=== PATIENT | male | born 1960 | race Caucasian/White ===

== ENCOUNTER 2020-06-04 09:23 | Outpatient (CLI) | payer MEDICARE, SELFPAY ==
--- NOTE | 2020-06-04 09:35 | MR_ITS ---
WS: [id number] MRI LUMBAR SPINE NONCONTRAST TECHNIQUE: Sagittal T1, T2 and STIR imaging. Axial T1 and T2 imaging. CLINICAL INFORMATION: M54.16 Radiculopathy, lumbar region COMPARISON: None. FINDINGS: Moderate lumbar curve convex left. No acute compression fractures. Degenerative endplate edema L3-4. No acute appearing compression fractures. No high-grade central canal stenosis. Low-lying conus at th e L3-4 level with dorsal fatty filum. Findings compatible with congenital cord tethering. Normal sign al in the distal cord and conus. No evidence of syrinx. L1-L2: Normal. L2-L3: Mild disc bulging with slight effacement of ventral thecal sac. Mild right and no significant left foraminal narrowing. Mild facet arthropathy. L3-L4: Mild disc bulging with slight effacement of ventral thecal sac. Small bilateral foraminal prot rusions with mild bilateral foraminal narrowing. Mild facet arthropathy. L4-L5: Mild disc bulging with slight effacement of ventral thecal sac. Mild left and no significant r ight foraminal narrowing. Moderate facet arthropathy. L5-S1: No significant disc bulging. Mild osteophytic ridging. Spinal canal and foramen are patent. Mi ld facet arthropathy. Visualized pelvic bony structures: Normal. Paravertebral soft tissues: Normal. MR/MR lumbar spine wo con* [id number] IMPRESSION: 1. Mild lumbar curve convex left. No acute compression fractures. 2. Degenerative endplate edema L3-4 disc space narrowing. 3. Small bilateral foraminal protrusions L3-4 with mild left greater than righ t foraminal narrowing. 4. Mild bilateral L4-5 foraminal narrowing. 5. Mild to moderate facet arthropathy L3-L5. 6. Low-lying conus at the L3-4 level with cord tethering and fatty filum is co ngenital. No syrinx or signal abnormality in the lower thoracic cord or conus. 7. Mild central canal stenosis in the mid cervical spine C4-C6.
--- NOTE | 2020-06-04 10:15 | XR_ITS ---
WS: [id number] HIPS BILATERAL TECHNIQUE: 5 views bilateral hips Including pelvis CLINICAL INFORMATION: Groin pain. COMPARISON: None. FINDINGS: Mild degenerative arthritis both hips. Hips are normal in appearance. Normal femoral necks. Normal pubic rami. No acute fractures. XR/XR hip BI 3-4V wo/w pel [id number] IMPRESSION: Mild degenerative arthritis both hips. No acute fractures.
== END 2020-06-04 09:24 | disposition home or self-care (01) ==
LOC: RADWPI 09:27
PROVIDERS: Family Provider Internal Medicine; PCP Internal Medicine; Visit Provider Internal Medicine
DX: R10.30 Lower abdominal pain, unspecified (principal); M16.0 Bilateral primary osteoarthritis of hip; R60.0 Localized edema; M51.26 Other intervertebral disc displacement, lumbar region; M48.02 Spinal stenosis, cervical region; M47.816 Spondylosis without myelopathy or radiculopathy, lumbar region
CPT/HCPCS: 72148; 73522

== ENCOUNTER → 2020-07-09 12:52 | Outpatient (BNVA) | payer MEDICARE, SELFPAY | PROVIDERS: Family Provider Internal Medicine; PCP Internal Medicine; Visit Provider Specialist | DX: G56.22 Lesion of ulnar nerve, left upper limb (principal) | CPT/HCPCS: 95910 ==

== ENCOUNTER 2020-08-22 14:26 | Outpatient (CLI) | payer MEDICARE, SELFPAY ==
--- NOTE | 2020-08-22 14:32 | MR_ITS ---
WS: [id number] MRI CERVICAL SPINE NONCONTRAST TECHNIQUE: Sagittal T1, T2 and STIR imaging. Axial T2, gradient, and fiesta imaging. CLINICAL INFORMATION: LEFT HAND NUMBNESS COMPARISON: None. FINDINGS: Straightening of the normal cervical lordosis. No high-grade central canal stenosis. Cord signal is n ormal. Some images degraded by patient motion. 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 C2-C3: Mild osteophytic ridging. Mild left and no significant right foraminal narrowing. Mild facet a rthropathy. Spinal canal is patent. C3-C4: Mild disc osteophyte complex with endplate ridging. Mild bilateral bony foraminal narrowing wo rse in the left. Moderate left facet arthropathy. C4-C5: Disc osteophyte complex with endplate ridging. Moderate right and no significant left foramina l narrowing. Mild/moderate facet arthropathy worse in the left. Spinal canal is patent. C5-C6: Disc osteophyte complex with slight effacement of the ventral thecal sac. Mild central canal s tenosis. Mild to moderate bilateral bony foraminal narrowing. C6-C7: Disc osteophyte complex with endplate ridging. Spinal canal is patent. Mild left greater than right bony foraminal narrowing. C7-T1: Mild osteophytic ridging. Slight canal is patent. Moderate left and no significant right shaneka inal narrowing. Visualized brain stem structures: Normal. Prevertebral soft tissues: Normal. MR/MR cervical spin wo con* [id number] IMPRESSION: 1. Straightening of the normal cervical lordosis. Cord signal is normal. Moder ate spondylitic changes. 2. Mild disc osteophyte complexes C3-C5 with slight effacement of ventral thec al sac. Mild central canal stenosis C5-C6. 3. Multilevel mild to moderate bony foraminal narrowing worse at left C3-4, ri ght C4-5, left C5-6, and left C7-T1. 4. 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
== END 2020-08-22 14:27 | disposition home or self-care (01) ==
LOC: RADWPI 14:31
PROVIDERS: PCP Internal Medicine; Visit Provider Orthopaedic Surgery
DX: G56.20 Lesion of ulnar nerve, unspecified upper limb (principal); R20.0 Anesthesia of skin; M25.78 Osteophyte, vertebrae
CPT/HCPCS: 72141

== ENCOUNTER 2020-08-23 12:16 | Outpatient (CLI) | payer MEDICARE, SELFPAY ==
--- NOTE | 2020-08-23 12:25 | CT_ITS ---
WS: [id number] CT CHEST WITH INTRAVENOUS CONTRAST HISTORY: ABNORMAL FINDING OF LUNG FIELD TECHNIQUE: Contiguous 5 mm axial imaging performed on the thorax. Coronal and sagittal reformats are submitted. All CT scans at [facility] use at least one of these dose optimization techniq ues: automated exposure control; mA and/or kV adjustment per patient size (includes targeted exams wh ere dose is matched to clinical indication); or iterative reconstruction. CONTRAST: Omnipaque 300; 95 mL IV. DLP: 900.01 mGy.cm COMPARISON: None available. Lungs and central airway: No pulmonary nodule or mass or pneumonia. Pleura: Normal. No pleural effusion. Heart and pericardium: Normal size heart with no pericardial effusion. Mediastinum and german: No significant adenopathy. Subcentimeter 8.7 mm lymph node at the LEFT hilum. Vessels: Mild tortuosity of the thoracic aorta due to the scoliosis of the thoracic spine. There is n o aneurysm. Pulmonary artery size is normal. There are a few scattered calcifications in the [place] c oronary arteries. Chest wall and lower neck: No soft tissue masses. Upper abdomen: Negative. Osseous structures: Marked RIGHT convex curvature the thoracic spine. Segmentation vertebral abnormal ities at T7-8. CT/CT chest w con* [id number] IMPRESSION: 1. No pulmonary mass or nodule. No pneumonia. 2. Mild atherosclerosis [place] coronary arteries. 3. No adenopathy.
[2020-08-23] MEDS: iohexol 300 mg/mL 100 mL Btl IV (13:12)
== END 2020-08-23 12:17 | disposition home or self-care (01) ==
LOC: RAD 12:19
PROVIDERS: PCP Internal Medicine; Visit Provider Internal Medicine
DX: R91.8 Other nonspecific abnormal finding of lung field (principal); I25.10 Atherosclerotic heart disease of native coronary artery without angina pectoris
CPT/HCPCS: 71260

== ENCOUNTER 2020-09-05 11:15 | Emergency (ER) | payer MEDICARE, SELFPAY ==
[2020-09-05 11:38] VITALS: BP 153/101; PULSE 91; RESP 16; TEMP 36.8; O2SAT 97; BMI 27.9
[2020-09-05 12:30] LABS: Basophils % 0.3 %; Eosinophils # 0.1 10^3/uL (0.0-0.8); Eosinophils % 1.3 %; Hematocrit 45.9 % (42.0-52.0); Hemoglobin 15.7 g/dL (11.7-16.6); Lymphocytes % 16.2 %; Mean Corpuscular HGB Conc 34.2 g/dL (30.0-36.0); Mean Corpuscular Hemoglobin 28.7 pg (28.0-34.0); Mean Corpuscular Volume 83.9 fL (80-94); Mean Platelet Volume 8.5 fL (7.4-10.4); Monocytes # 0.3 10^3/uL (0.2-0.9); Monocytes % 5.4 %; Neutrophils % 76.6 %; Nucleated Red Blood Cells % 0 %; Platelet Count 325 10^3/cmm (130-400); Red Blood Count 5.47 10^6/uL (4.1-5.3); Red Cell Distribution Width 12.2 % (12.1-15.1); White Blood Count 6.1 10^3/uL (4.0-10.0)
--- NOTE | 2020-09-05 12:45 | CT_ITS ---
WS: [id number] CT ABDOMEN AND PELVIS NONCONTRAST HISTORY: constipation TECHNIQUE: Imaging performed through the abdomen and pelvis. Coronal and sagittal reformats are submi tted. All CT scans at [facility] use at least one of these dose optimization techniques: automated exposure control; mA and/or kV adjustment per patient size (includes targeted exams where d ose is matched to clinical indication); or iterative reconstruction. DLP: 1057.77 mGy.cm COMPARISON: None available. Lower thorax: Lung bases are clear. Visualized heart is normal. No hiatal hernia. Liver: Normal size liver. No mass or bile duct dilatation. Gallbladder: Normal gallbladder. Pancreas: Replacement of the pancreas. No evidence for acute pancreatitis. Spleen: Normal. Adrenal glands: Normal. No mass. Right kidney: Normal size kidney with no mass or hydronephrosis. Left kidney: Normal size kidney with no mass or hydronephrosis. Aorta: Normal abdominal aorta, no aneurysm or atherosclerosis. No free fluid, intraperitoneal air or significant lymphadenopathy. GI tract: Normal appendix. Very minimal fecal retention and constipation. There is no obstructive pat tern. Abdominal wall: Negative. No hernia. Pelvis: Markedly distended urinary bladder extends over length of 16 cm. Prostate gland is not signif icantly enlarged. No pelvic mass or free fluid. Osseous structures: Moderate spondylitic changes within the spine. Degenerative disc disease and endp late osteochondrosis at L3-4 noted on a prior study MRI also. CT/CT abdomen pelvis wo con [id number] IMPRESSION: 1. No significant constipation. 2. Markedly enlarged urinary bladder extending over length of 16 cm. Bladder o utlet obstruction may be present. 3. Normal appendix.
--- NOTE | 2020-09-05 12:49 | ED_ITS ---
HPI - Abdominal Pain General: Chief Complaint: Abdominal Pain Stated Complaint: upper abd pain Time Seen by Provider: 09/05/20 11:53 Source: patient Mode of arrival: ambulatory Limitations: no limitations History of Present Illness: HPI narrative: Patient is a 59-year-old male who is on chronic narcotics and subsequently has constipation from that. Constipation has been worsening in the last few weeks and his primary care provider had advised that he start MiraLAX, magnesium citrate, and he has obtained some relief but he says the amount of stool that comes out is not comme nsurate with the amount of constipation that he had had before. He is having increased upper abdominal pain and bloating and is here to be evaluated. MD elicited complaint: abdominal pain Pertinent past history: constipation Onset (ago): week(s) Pain Consistency: constant Location: Other (upper abdomen) Severity: moderate Quality: cramping Radiation: none Migration to: no migration Exacerbating factors: nothing Relieving factors: nothing Associated Symptoms: Reports bloating and constipation; Denies anorexia, belching, change in bowel habits, change in stool character, chills, coffee ground emesis, GI cramping, diarrhea, dyspepsia, dysuria, excessive flatus, fever(s), heartburn, hematochezia, hematuria, hematemesis, fecal incontinence, loose stools, melena, nausea, poor appetite, syncope and vomiting Review of Systems General: Reports: 10 or more systems reviewed and unremarkable except in HPI and below Const: Denies: fever(s) or chills Eyes: Denies: change in vision or blurry vision ENMT: Denies: throat pain, enlarged tonsils, odynophagia, hoarseness, mouth pain or swelling of lips/tongue Card: Denies: syncope Resp: Denies: dyspnea, productive cough or non-productive cough GI: Reports: constipation and bloating; Denies: nausea, vomiting, hematemesis, coffee ground emesis, heartburn, diarrhea, GI cramping, belching, excessive flatus, fecal incontinence, change in bowel habits, change in stool character, hematochezia or melena : Denies: dysuria or hematuria Musc: Denies: neck pain, back pain or extremity swelling Skin/Breast: Denies: rash, pruritus or erythema Neuro: Denies: headache(s), numbness in extremities or weakness in extremities Endo: Denies: polyuria, polydipsia or tired all the time PFSH ED PFSH: Medical History Chronic pain syndrome Ramiro-Danlos syndrome, unspecified Family History Other Heart disease Social History Smoking and tobacco status: never smoked Alcohol intake: current History of recent travel: No Physical Exam Const: COMMON NORMALS: no acute distress, average body habitus, patient oriented x3, no limitations, healthy appearing, alert and well nourished Neck/C-Spine: COMMON NORMALS: no meningeal signs and no JVD Resp: COMMON NORMALS: normal respiratory effort, No retractions, No use of accessory muscles, clear to auscultation bilaterally and percussion normal AUSCULTATION: clear to auscultation bilaterally PERCUSSION: percussion normal Cardio: COMMON NORMALS: no JVD, regular rate, regular rhythm, S1 normal heart sound present, S2 normal heart sound present, No gallops present (Cardio), No clicks present (Cardio), No murmurs present (Cardio), No rub (Cardio) and Peripheral pulses 2+ throughout RATE: regular rate RHYTHM: regular rhythm HEART SOUNDS: S1 normal heart sound present and S2 normal heart sound present PERIPHERAL PULSES: Peripheral pulses 2+ throughout GI: COMMON NORMALS: Normal to inspection, nondistended, normoactive bowel soun ds present, Soft to palpation, No hepatosplenomegaly present, no masses and no bruits PALPATION: Yes Soft to palpation, Yes Tenderness to palpation present (GI) (epigastric), No Guarding due to palpation present (GI), No Rigid due to palpation and Yes No hepatosplenomegaly present Extremity: COMMON NORMALS: normal to inspection, full ROM, capillary refill normal, no calf tenderness and no pedal edema Neuro: COMMON NORMALS: patient oriented x3 SENSORIUM/ORIENTATION: Yes alert MENINGEAL SIGNS: Yes no meningeal signs Skin: COMMON NORMALS: no rashes or lesions noted, no wounds, turgor normal, no jaundice, no petechiae and no mottling GENERAL SKIN EXAM: no rashes or lesions noted and turgor normal Course Reevaluation(s): Reevaluation #1: Discussed lab and imaging findings with him. No constipation but he has a significantly distended urinary bladder which is probably responsible for his feeling of abdominal pressure. We will insert a Lawler catheter and refer him to urology for evaluation. He will be discharged home with a Lawler and a leg bag. He voiced understanding and is in agreement with the plan. Time: 14:51 Reevaluation #2: Did not obtain 1200 mL of urine when she inserted a Lawler catheter. He is going to be discharged home with a leg bag and with follow-up to see urology. Time: 15:55 Vital Signs: Vital signs: Vital Signs Temperature 98.2 F 09/05/20 11:38 Pulse Rate 91 09/05/20 11:38 Respiratory Rate 16 09/05/20 11:38 Blood Pressure 133/94 09/05/20 13:38 Pulse Oximetry 95 09/05/20 13:38 MDM - Abdominal Pain MDM Narrative: Medical decision making narrative: 59-year-old male who presents to the emergency department with concerns for constipation. He has been taking laxatives with good effect but he felt he was inclined not well. On evaluation in the emergency department he has significant urinary retention which is likely responsible for his symptoms. A Lawler catheter was inserted and he had 1200 mL of urine in his bladder and he is discharged home with a catheter and a leg bag. He will follow up with a urologist for further evaluation. Differential Diagnosis: Differential diagnosis abdominal pain: Likely abdominal pain, acute appendicitis, constipation and small bowel obstruction Medical Records: Attestation: I reviewed the patient's medical records. Lab Data: Attestation: I reviewed the patient's lab results. Labs: Lab Results 09/05/20 09/05/20 09/05/20 Range/Units 12:22 12:22 13:36 WBC 6.1 (4.0-10.0) 10^3/ uL RBC 5.47 H (4.1-5.3) 10^6/u L Hgb 15.7 (11.7-16.6) g/dL Hct 45.9 (42.0-52.0) % MCV 83.9 (80-94) fL MCH 28.7 (28.0-34.0) pg MCHC 34.2 (30.0-36.0) g/dL RDW 12.2 (12.1-15.1) % Plt Count 325 (130-400) 10^3/c mm MPV 8.5 (7.4-10.4) fL Neut % (Auto) 76.6 % Lymph % (Auto) 16.2 % Lea % (Auto) 5.4 % Eos % (Auto) 1.3 % Baso % (Auto) 0.3 % Neut # (Auto) 4.70 (1.8-7.7) 10^3/u L Lymph # (Auto) 1.0 (0.8-4.8) 10^3/u L Lea # (Auto) 0.3 (0.2-0.9) 10^3/u L Eos # (Auto) 0.1 (0.0-0.8) 10^3/u L Baso # (Auto) 0.0 (0.0-0.1) 10^3/u L Nucleated RBC % (a uto) 0 % Nucleated RBCs # 0.0 /100WBC Sodium 138 (136-145) mmol/L Potassium 4.4 (3.5-5.1) mmol/L Chloride 100 (98-107) mmol/L Carbon Dioxide 26 (22-29) mmol/L Anion Gap 16.4 (5-19) BUN 5 L (6-20) mg/dL Creatinine 0.7 (0.7-1.2) mg/dL GFR Calculation 115.8 (90-130) mL/min Glucose 130 H (65-115) mg/dL Calculated Osmolal ity 285 (285-295) mOsm/k g Calcium 9.5 (8.5-10.5) mg/dL Total Bilirubin 0.4 (0.15-1.2) mg/dL AST 16 (0-40) U/L ALT 29 (0-41) U/L Alkaline Phosphata se 109 (40-130) IU/L Total Protein 7.7 (6.6-8.7) g/dL Albumin 4.4 (3.5-5.2) g/dL Globulin 3.3 (1.3-4.6) g/dL Lipase 17 (13-60) U/L Urine Color Yellow (Yellow) Urine Appearance Clear (CLEAR) Urine pH 6.5 (5-7) Ur Specific Gravit y 1.010 (1.005-1.030) Urine Protein Neg (Negative) Urine Glucose (UA) Norm (Normal) Urine Ketones Negative (Negative) Urine Blood Neg (Negative) Urine Nitrate Negative (Negative) Urine Bilirubin Neg (Negative) Urine Urobilinogen Norm (Negative) mg/dL Ur Leukocyte Tayler ase Negative (Negative) Imaging Data ^: CT Abd/Pel: Radiologist's impression: [address] [address] [address] Scan Report Signed Patient: Nick Jorge #: [id number] : 2At#:[id number] Age/Sex: 59 / MADM Date: 09/05/20 Loc: ERRoom/Bed: Attending Dr: Ordering Provider/Ordering MD: Rina Mathias MD, [facility] [place] Date of Service: 09/05/20 Procedure(s): CT abdomen pelvis [facility] [address] Accession Number(s): [id number] Report Number: [id number] WS: [id number] CT ABDOMEN AND PELVIS NONCONTRAST HISTORY: constipation TECHNIQUE: Imaging performed through the abdomen and pelvis. Coronal and sagittal reformats are submitted. All CT scans at [facility] use at least one of these dose optimization techniques: automated exposure control; mA and/or kV adjustment per patient size (includes targeted exams where dose is matched to clinical indication); or iterative reconstruction. DLP: 1057.77 mGy.cm COMPARISON: None available. Lower thorax: Lung bases are clear. Visualized heart is normal. No hiatal hernia. Liver: Normal size liver. No mass or bile duct dilatation. Gallbladder: Normal gallbladder. Pancreas: Replacement of the pancreas. No evidence for acute pancreatitis. Spleen: Normal. Adrenal glands: Normal. No mass. Right kidney: Normal size kidney with no mass or hydronephrosis. Left kidney: Normal size kidney with no mass or hydronephrosis. Aorta: Normal abdominal aorta, no aneurysm or atherosclerosis. No free fluid, intraperitoneal air or significant lymphadenopathy. GI tract: Normal appendix. Very minimal fecal retention and constipation. There is no obstructive pattern. Abdominal wall: Negative. No hernia. Pelvis: Markedly distended urinary bladder extends over length of 16 cm. Prostate gland is not significantly enlarged. No pelvic mass or free fluid. Osseous structures: Moderate spondylitic changes within the spine. Degenerative disc disease and endplate osteochondrosis at L3-4 noted on a prior study MRI also. CT/CT abdomen pelvis wo con [id number] IMPRESSION: 1. No significant constipation. 2. Markedly enlarged urinary bladder extending over length of 16 cm. Bladder outlet obstruction may be present. 3. Normal appendix. Dictated By:Essie Wan DO Signed By:Essie Wan DOSigned Date/Time:09/05/20 1440 DD/ 1436 Discharge Plan Discharge Patient Disposition: Home Clinical Impression: Acute urinary retention Condition: Stable Prescriptions: Continued hydroxyzine HCl 25 mg tablet 25 mg PO QID PRN (Reason: itching) Qty: 60 RF: 2 trazodone 50 mg tablet 50 mg PO DAILY RF: 0 morphine 15 mg tablet 15 mg PO Q12H 30 Days Qty: 60 RF: 0 morphine 60 mg tablet extended release 60 mg PO Q12H 30 Days Qty: 60 RF: 0 diazepam [Valium] 5 mg tablet 5 mg PO TID PRN (Reason: anxiety) Qty: 90 RF: 2 sumatriptan succinate 25 mg tablet 25 mg PO Q2H PRN (Reason: migraine headache) Qty: 12 RF: 3 Discharge Orders: Discharge ED (Routine); Ordered 09/05/20 Ordered By: Rina Mathias Referrals: Gregory Posadas MD [Primary Care Provider] - 1-3 days Ollie Kruse MD [Physician] - 1-3 days Discharge Diet: Usual diet Discharge Activity: Increase activity as tolerated Patient Instructions: Urinary Retention in Men (ED) Activity Restrictions/Additional Instructions: Return for any new or worsening symptoms. You will be contacted to schedule an appointment with a urologist since you have a very distended bladder which means you have trouble urinating. Keep the Lawler catheter in until you are cleared by urology. Follow-up with your primary care provider. Coding Level of Care Code ED Riveter Helper for Chg Fwd Exam Detailed
[2020-09-05 12:51] LABS: Alanine Aminotransferase 29 U/L (0-41); Albumin Level 4.4 g/dL (3.5-5.2); Alkaline Phosphatase 109 IU/L (40-130); Anion Gap 16.4 (5-19); Aspartate Amino Transferase 16 U/L (0-40); Blood Urea Nitrogen 5 mg/dL (6-20); Calcium 9.5 mg/dL (8.5-10.5); Carbon Dioxide 26 mmol/L (22-29); Chloride 100 mmol/L (98-107); Globulin 3.3 g/dL (1.3-4.6); Glomerular Filtration Rate 115.8 mL/min (90-130); Glucose 130 mg/dL (65-115); Lipase 17 U/L (13-60); Osmolality Calculated 285 mOsm/kg (285-295); Potassium 4.4 mmol/L (3.5-5.1); Sodium 138 mmol/L (136-145); Total Bilirubin 0.4 mg/dL (0.15-1.2); Total Protein 7.7 g/dL (6.6-8.7)
[2020-09-05 13:38] VITALS: BP 133/94; O2SAT 95
[2020-09-05 14:09] LABS: Add Urine Microscopic? NO
[2020-09-05 14:29] LABS: Bilirubin Urine Neg (Negative); Blood Urine Neg (Negative); Glucose Urine UA Norm (Normal); Ketones Urine Negative (Negative); Leukocyte Esterase Urine Negative (Negative); Nitrate Urine Negative (Negative); Protein Urine Neg (Negative); Urine Appearance Clear (CLEAR); Urine Color Yellow (Yellow); Urobilinogen Urine Norm (Negative); pH Urine 6.5 (5-7)
--- NOTE | 2020-09-05 15:04 | DCPLANNER ---
dialysis clinical manager was asked to schedule a follow up appointment for patient with Dr. Kruse. dialysis clinical manager called the office of Dr. Kruse, spoke with Omaira. dialysis clinical manager gave clinic patients information, field case manager was told that patients information would be printed and reviewed. Clinic will call patient with appointment information.
[2020-09-05 16:03] VITALS: BP 163/91; PULSE 74; RESP 16; O2SAT 96
--- NOTE | 2020-09-07 10:31 | DCPLANNER ---
Patient has a follow up appointment scheduled for September at 4:[address] rKuse.
--- NOTE | 2020-09-14 15:00 | DCPLANNER ---
Patient had a follow up appointment scheduled for 09.13.[address] Kruse - patient did attend appointment.
== END 2020-09-05 16:04 | disposition home or self-care (01) ==
PROVIDERS: Emergency Medicine; Emergency Provider Family Medicine; PCP Internal Medicine
DX: R33.9 Retention of urine, unspecified (principal)
CPT/HCPCS: 12345; 51702; 74176; 80053; 81003; 83690; 85025; 99283

== ENCOUNTER 2020-09-05 16:52 | Outpatient (CLI) | payer MEDICARE, SELFPAY ==
--- NOTE | 2020-09-05 | XR_ITS ---
WS: [id number] Lumbar spine with flexion, extension, and neutral lateral, 09/05/2020 Clinical Data: back pain Comparison: None. Findings: No compression fractures or subluxation is seen. No limitation of motion or subluxation is seen on flexion or extension. There is osteoarthritic change of the lumbar vertebral bodies L1-L5. There is degenerative disc narro wing at L1-L2, L2-L3 and L3-L4. XR/XR lumbar spine f/e only [id number] Impression: 1. Negative for limitation of motion or subluxation on flexion or extension. 2. Osteoarthritis and degenerative disc disease at multiple levels.
--- NOTE | 2020-09-05 | XR_ITS ---
WS: [id number] Lateral views of cervical spine in the flexion, extension and neutral positions. 09/05/2020 Clinical Data: neck pain Comparison: None. Findings: No prevertebral soft tissue swelling is seen. There is disc space narrowing at multiple levels from C 3-C4 and C7-T1. There is calcification of the anterior longitudinal ligaments noted at C5-C6 and C6-C 7. No compression fractures seen. On flexion and extension there is limitation of motion on flexion b ut not extension. No subluxation is present. XR/XR cervical spine fl/ex [id number] Impression: 1. Limitation of motion on flexion but not extension. 2. Negative for subluxation on flexion or extension. 3. Osteoarthritis and degenerative disc disease at multiple levels.
== END 2020-09-05 16:53 | disposition home or self-care (01) ==
LOC: RAD 16:56
PROVIDERS: PCP Internal Medicine; Visit Provider Neurological Surgery
DX: M47.812 Spondylosis without myelopathy or radiculopathy, cervical region (principal); M50.30 Other cervical disc degeneration, unspecified cervical region; M51.36 Other intervertebral disc degeneration, lumbar region; M47.816 Spondylosis without myelopathy or radiculopathy, lumbar region
CPT/HCPCS: 72040; 72120

== ENCOUNTER 2023-04-27 16:15 | Outpatient (CLI) | payer BC, SELFPAY ==
--- NOTE | 2023-04-27 16:39 | XR_ITS ---
WS: [id number] EXAMINATION: XR knee RT 1-2V [id number] REASON FOR EXAM: Ramiro-danlos disease COMPARISON: 10/14/2018 ORDER DATE: 04/27/2023 4:40 PM FINDINGS: There is no sign of any acute osseous or articular abnormality. There is moderate marginal osteophyte s at the lateral compartment and patella. No sign of joint effusion. There are no specific soft tissu e abnormalities. XR/XR knee RT 1-2V [id number] IMPRESSION: Mild osteoarthritis lateral and patellofemoral compartments
--- NOTE | 2023-04-27 16:39 | XR_ITS ---
WS: [id number] EXAMINATION: XR hip BI 2V wo/w pel [id number] REASON FOR EXAM: Ramiro-danlos disease COMPARISON: None available. ORDER DATE: 04/27/2023 4:40 PM TECHNIQUE: Frontal internal/external rotation views of each hip were obtained. X-RAY FINDINGS: There are no fractures or dislocations. Normal motion with internal/external rotation is present. No degenerative changes. XR/XR hip BI 2V wo/w pel [id number] IMPRESSION: 1. No fractures or dislocations of the hips 2. Normal motion with internal/external rotation.
--- NOTE | 2023-04-27 16:40 | XR_ITS ---
WS: [id number] EXAMINATION: XR knee LT 1-2V [id number] REASON FOR EXAM: Ramiro-danlos disease ORDER DATE: 04/27/2023 4:40 PM COMPARISON: 10/14/2018 Moderate narrowing lateral compartment of the LEFT knee with hypertrophic osteophytes from the lateral compartment. Fixation staple in the lateral femoral condyle. Similar in appearance to the prior study. Mild narrowing of the LEFT patellofemoral joint space with hypertrophic osteophytes along the joint surface. Mild narrowing medial compartment RIGHT knee. XR/XR knee LT 1-2V [id number] IMPRESSION: 1. Moderate narrowing lateral compartment of the LEFT knee 2. Prior staple fixation hardware in the lateral LEFT femoral condyle.
== END 2023-04-27 16:16 | disposition home or self-care (01) ==
PROVIDERS: PCP Internal Medicine; Visit Provider Internal Medicine
DX: Q79.60 Ehlers-Danlos syndrome, unspecified (principal); M17.11 Unilateral primary osteoarthritis, right knee
CPT/HCPCS: 73521; 73560